=== PATIENT | male | born 1970 | race Two or more races ===

== ENCOUNTER 2022-03-04 17:38 | Inpatient (IN) | payer OTHER, MEDICAID ==
[~2022-03-04] VITALS: Ht 182.9 cm; Wt 45.4 kg
[2022-03-04 19:31] LABS: Eosinophils # (auto) 0.1 10 ^3/uL (0-0.8)
[2022-03-04 19:33] LABS: Basophils # (auto) 0.1 10 ^3/uL (0-0.2); Basophils % (auto) 0.6 % (0.0-2.0); Eosinophils % (auto) 1.4 % (0.0-7.0); Hematocrit 36.9 % (41.0-53.0); Hemoglobin 11.5 g/dL (13.5-17.5); Lymphocytes % (auto) 10.3 % (10.0-50.0); Mean Corpuscular Hemoglobin 21.8 pg (28.0-32.0); Mean Corpuscular Hgb Conc. 31.2 g/dL (32.0-36.0); Monocytes # (auto) 0.5 10 ^3/uL (0-1.3); Monocytes % (auto) 5.1 % (0.0-12.0); Neutrophils # (auto) 7.6 10 ^3/uL (1.6-8.6); Neutrophils % (auto) 82.6 % (37.0-80.0); Red Blood Cells 5.28 10^6/uL (4.5-5.90); Red Cell Distribution Width 16.9 % (11.8-14.3); White Blood Cell 9.2 10^3/uL (4.4-10.8)
[2022-03-04 19:55] LABS: Albumin 3.9 g/dL (3.4-5.0); BUN/Creatinine Ratio 8.8; Calcium 9.3 mg/dL (8.5-10.1); Potassium 4.3 mmol/L (3.5-5.1)
[2022-03-04 19:58] LABS: Bilirubin, Total 0.4 mg/dL (0.2-1.0); Total Protein 7.3 g/dL (6.4-8.2)
[2022-03-04 20:58] LABS: Urine Bacteria NONE SEEN /hpf (None Seen); Urine Blood Negative /uL (Negative); Urine Specific Gravity 1.013 (1.001-1.035); Urine WBC 1 /hpf (0 - 3)
[2022-03-04 21:13] LABS: INR 1.07 (0.9-1.15); Partial Thromboplastin Time 28.2 sec (23.6-33.0)
[2022-03-04] MEDS ORDERED: IOHEXOL 350 MG/ML 100ML IJ ONE (22:24)
[2022-03-05] MEDS ORDERED: MAGNESIUM SULFATE 1GM/100ML 100 ML IV ONE (00:45)
[2022-03-05] MEDS ORDERED: LIDOCAINE 1% HCL (LOCAL ANESTH.) INJ 20ML MDV ID ONE (01:00)
[2022-03-05] MEDS ORDERED: BACITRACIN TOP OINT 1 UD PKG TOP ONE (02:00)
[2022-03-05] MEDS ORDERED: ROSU1TAB12 PO (03:03)
[2022-03-05] MEDS ORDERED: NIFE90TA49 PO (03:03)
[2022-03-05] MEDS ORDERED: CLON0.2D6 PO (03:03)
[2022-03-05] MEDS ORDERED: GLIM4TAB42 PO (03:03)
[2022-03-05] MEDS ORDERED: ENAL2.5T7 PO (03:03)
[2022-03-05] MEDS ORDERED: LABE300T3 PO (03:03)
[2022-03-05] MEDS ORDERED: METF-371 PO (03:03)
[2022-03-05] MEDS ORDERED: LACTATED RINGER'S 1,000 ML IV ONE (03:45)
[2022-03-05] MEDS ORDERED: HYDROcodone-ACET 5/325MG TAB PO ONE (04:00)
[2022-03-05] MEDS ORDERED: ONDANSETRON HCL 4 MG/2 ML VIAL IV PRN (04:30)
[2022-03-05] MEDS ORDERED: NITROGLYCERIN 0.4 MG SL TAB SL PRN (04:30)
[2022-03-05] MEDS ORDERED: HYDROcodone-ACET 5/325MG TAB PO PRN (04:30)
[2022-03-05] MEDS ORDERED: MORPHINE SULFATE INJ 2 MG/ml SYRG IV PRN (04:30)
[2022-03-05] MEDS ORDERED: DEXTROSE (50%) 50ML SYRG IV PRN (04:30)
[2022-03-05] MEDS ORDERED: SODIUM CHLORIDE 0.9% 1,000 ML IV ONE (05:00)
[2022-03-05] MEDS: SODIUM CHLORIDE 0.9% 1,000 ML IV SCH ×2 (06:03→16:52)
[2022-03-05] MEDS: ACCU-CHEK COMFORT CURVE STRIP VI SCH ×2 (06:18→11:30)
[2022-03-05] MEDS: InsuLIN REG 1unit/0.01ml Soln (100units/ml) SC SCH ×2 (06:24→12:41)
[2022-03-05 08:33] LABS: Eosinophils # (auto) 0.1 10 ^3/uL (0-0.8); Lymphocytes # (auto) 1.6 10 ^3/uL (0.4-5.4); Mean Corpuscular Hemoglobin 22.2 pg (28.0-32.0); Monocytes # (auto) 0.5 10 ^3/uL (0-1.3); Neutrophils # (auto) 6.8 10 ^3/uL (1.6-8.6)
[2022-03-05 08:37] LABS: Basophils # (auto) 0 10 ^3/uL (0-0.2); Basophils % (auto) 0.4 % (0.0-2.0); Eosinophils % (auto) 0.6 % (0.0-7.0); Hemoglobin 11.6 g/dL (13.5-17.5); Lymphocytes % (auto) 17.7 % (10.0-50.0); Mean Corpuscular Hgb Conc. 32.3 g/dL (32.0-36.0); Mean Corpuscular Volume 68.8 fL (80.0-100.0); Monocytes % (auto) 5.6 % (0.0-12.0); Neutrophils % (auto) 75.7 % (37.0-80.0); Red Blood Cells 5.23 10^6/uL (4.5-5.90); Red Cell Distribution Width 16.8 % (11.8-14.3)
[2022-03-05 08:45] LABS: BUN/Creatinine Ratio 8.4; Calcium 8.7 mg/dL (8.5-10.1); Potassium 3.7 mmol/L (3.5-5.1)
[2022-03-05 08:50] LABS: % Iron Saturation 14.9 % (20-55)
[2022-03-05] MEDS ORDERED: LABETALOL HCL 200 MG TAB PO SCH (10:00)
[2022-03-05] MEDS ORDERED: ENOXAPARIN SOD 40 MG/0.4 ML SYRINGE SC SCH (10:00)
[2022-03-05] MEDS ORDERED: NIFEdipine ER 30 MG TAB PO SCH (10:00)
[2022-03-05] MEDS ORDERED: ENALAPRIL MALEATE 2.5 MG TAB PO SCH (10:00)
[2022-03-05] MEDS ORDERED: cloNIDine 0.2 mg/24hr 7DAY PATCH TD SCH (10:00)
[2022-03-05 13:00] VITALS: BP 121/91
[2022-03-05 16:01] VITALS: BP 121/91
== END 2022-03-05 17:00 | disposition home health service (06) | DRG 605 ==
LOC: ER 17:38 → EDBD 17:38 → TELE 03-05 04:23 → TELE-EAST 03-05 08:35
PROVIDERS: ADMIT Hospitalist; ATTEND Hospitalist
PROC: 0HQ0XZZ Repair Scalp Skin, External Approach (ICD-10-PCS; principal; 2022-03-05)
DX: S01.01XA Laceration without foreign body of scalp, initial encounter (principal); R55 Syncope and collapse; E86.0 Dehydration; D50.9 Iron deficiency anemia, unspecified; E11.9 Type 2 diabetes mellitus without complications; E78.5 Hyperlipidemia, unspecified; F12.90 Cannabis use, unspecified, uncomplicated; Z20.822 Contact with and (suspected) exposure to COVID-19; I10 Essential (primary) hypertension; I44.0 Atrioventricular block, first degree; X58.XXXA Exposure to other specified factors, initial encounter; Y93.89 Activity, other specified; Y92.89 Other specified places as the place of occurrence of the external cause; Z86.73 Personal history of transient ischemic attack (TIA), and cerebral infarction without residual deficits; Y99.8 Other external cause status
CPT/HCPCS: 12004; 36415; 70450; 71045; 71275; 72125; 80048; 80053; 81001; 82962; 83540; 83550; 83735; 83880; 84484; 85025; 85379; 85610; 85730; 93306; 93886; 96361; 96365; G0378; J1815; J2001

== ENCOUNTER 2022-03-13 09:27 | Emergency (ER) | payer OTHER, MEDICAID ==
[~2022-03-13] VITALS: Ht 185.4 cm; Wt 104.3 kg
[~2022-03-13 09:27] MED LIST: CLON0.2D6 PO; ENAL2.5T7 PO; GLIM4TAB42 PO; LABE300T3 PO; METF-371 PO; NIFE90TA49 PO; ROSU1TAB12 PO
[2022-03-13 10:27] VITALS: BP 130/83
== END 2022-03-13 11:01 | disposition home or self-care (01) ==
LOC: ER 09:27
DX: S01.01XD Laceration without foreign body of scalp, subsequent encounter (principal); I10 Essential (primary) hypertension; E11.9 Type 2 diabetes mellitus without complications; Z86.73 Personal history of transient ischemic attack (TIA), and cerebral infarction without residual deficits; Z79.899 Other long term (current) drug therapy; X58.XXXD Exposure to other specified factors, subsequent encounter